=== PATIENT | male | born 1990 | race Two or more races ===

== ENCOUNTER 2017-09-12 00:02 | Emergency (ER) | payer OTHER ==
[~2017-09-12] VITALS: Ht 170.2 cm; Wt 80.7 kg
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
--- NOTE | 2017-09-12 00:31 | NUR ---
PT IS GETTING A KNEE IMMOBILIZER AND NEW CRUTCHES THAT ARE THE PROPER HEIGHT FOR THE PT.
--- NOTE | 2017-09-12 00:44 | NUR ---
Patient discharged to [facility] in stable condition. Written and verbal after care instructions given. Patient verbalizes understanding of instruction AND RX. PT REC'D NEW CRUTCHES AND REC'D CRUTCH TRAINING. DR. RUGGIERO IS AT THE BEDSIDE SPEAKING TO THE PT. PT REC'D 2 ICE PACKS TO TAKE WITH HIM. PT AMBULATED OUT ON CRUTCHES. VSS.
[2017-09-12 00:54] VITALS: BP 129/86
== END 2017-09-12 00:55 ==
LOC: ER 00:05
DX: S83.004A Unspecified dislocation of right patella, initial encounter (principal); W18.39XA Other fall on same level, initial encounter; Y93.89 Activity, other specified; Y92.89 Other specified places as the place of occurrence of the external cause; Y99.8 Other external cause status
CPT/HCPCS: A4606; Z7610